=== PATIENT | male | born 1980 | race Caucasian/White ===

== ENCOUNTER 2024-12-16 00:36 | Day surgery (SDC) | payer OTHER, SELFPAY ==
[2024-11-29 13:58] VITALS: BMI 28.9
--- OUTSIDE RECORDS SUMMARY | 2024-12-16 00:37 | XMS_ITS ---
Author Organization [facility] Address [address] [place] [address] Care Team Providers Care Handyperson Name Role Phone Jefe Garcia Primary Care Provider [phone] Allergies Allergen (clinical drug ingredient) Drug/Non Drug Allergy documented on EMR Reaction Allergy Type Onset Date Status Non-steroidal anti-inflammatory agent (FN) NSAIDs Unknown Drug Allergy Active Results Component Value Reference Range Notes 12 Panel Urine Drug Screen ( Not yet reviewed by provider) Interpretation: Performing Lab: Notes/Report: THC POS MAO neg MOP (OPI) POS AMP neg MET neg BAR neg BZO neg MDMA neg MTD neg OXY POS PCP neg BUP POS REASON FOR VISIT mat new, fentanyl, possibly continue suboxone/discuss options Medications Medication SIG (Take, Route, Fr equency, Duration) Notes Start Date End Date Status Omeprazole 10 MG 1 capsule 30 minutes before morning meal Orally Once a day for 30 day(s) Active Suboxone 8-2 MG 1 film under the ton belgica and allow to dissolve Sublingual Once a day 12/15/2024 Active Social History Tobacco Use: Social History Observation Description Date Details (start date - stop date) Heavy tobacco s moker NA - NA Sex Assigned At : Social History Observation Description Sex Assigned At Male Tobacco Control (Standard) Question Answer Notes Tobacco use: Heavy tobacco smoker Additional Findings: Tobacco user Moderate cigar ette smoker (10-19 cigs/day) Problems Problem Type SNOMED Code ICD Code Onset Dates Problem Status W/U Status Risk Notes Problem Mental disorder caused by drug (188524003) Opioid use disorder (F11.99) Active confirmed Problem Obesity (650895510) Obesity (BMI 30-39.9) (E66.9) Active confirmed Problem Tobacco use (601467750) Tobacco use disorder (F17.200) Active confirmed Vital Signs Weight 224.2 lbs 12/15/2024 Height 72 in 12/15/2024 BMI 30.4 kg/m2 12/15/2024 Blood pressure systolic 138 mm Hg 12/15/19 25 Blood pressure diastolic 88 mm Hg 025 Heart Rate 66 /min 12/15/2024 Oximetry 96 % 12/15/2024 Temperature 97.7 degrees Fahrenheit 12/15/19 25 Respiratory Rate 18 /min 12/15/2024 Encounters Encounter Location Date Provider Diagnosis [facility] [place] [address] [place] [address] 12/15/2024 Jefe Garcia Opioid use disorder F11.99 ; Obesity (BMI 30-39.9) E66.9 and Tobacco use disorder F17.200 Assessments Encounter Date Diagnosis (ICD Code) Assessment Notes Treatment Notes Treatment Clinical Notes Section Notes 12/15/2024 Opioid use disorder (ICD-10 - F11.99) 12/15/2024 Obesity (BMI 30-39.9) (ICD-10 - E66.9) 12/15/2024 Tobacco use disorder (ICD-10 - F17.200) 12/15/2024 Other Discussed medication side effects, adverse effects, risks, benefits, as well as interactions. Encouraged non-use of opioids. Has naloxone. Recommended participation in recovery groups and/or counseling services. May contact office with questions or concerns. Plan Of Treatment Medication Medication Name Sig Start Date Stop Date Notes Suboxone 8-2 MG 1 film under the ton belgica and allow to dissolve Sublingual Once a day 12/15/2024 Treatment Notes Assessment Notes Other Discussed medication side effects, adverse effects, risks, benefits, as well as interactions. Encouraged non-use of opioids. Has naloxone. Recommended participation in recovery groups and/or counseling services. May contact office with questions or concerns. Pending Test Test Name Order Date 12 Panel Urine Drug Screen 12/15/2024 Next Appt Details Follow Up: 2 Weeks, Reason: MAR f/u Progress Notes * Nabil BALTAZAROB:1980 (44 yo M)Acc No.[id number]:12/15/2024 Patient: Chato CROWE Provider: Nancy Garcia, MSN, PEST CONTROL SERVICE REPRESENTATIVE, DIRECTOR APPAREL-C :1980 A ge:44 Y S ex:Male Date:12/15/2024 Phone: Address:[address] [place] [id number] Check In:09:50 AM PREFORM PLATE MAKER Subjective: * Chief Complaints: * M at new, fentanyl, possibly continue suboxone/discuss options * HPI: I nterim History: Emergency room visit N o. Was hospitalized N o. D epression Screening: PHQ-9 L ittle interest or pleasure in doing things?Several days F eeling down, depressed, or hopeless S everal days T rouble falling or staying asleep, or sleeping too much M ore than half the days F eeling tired or having little energy M ore than half the days P oor appetite or overeating N ot at all F eeling bad about yourself or that you are a failure, or have let yourself or your family down N ot at all T rouble concentrating on things, such as reading the newspaper or watching television M ore than half the days M oving or speaking so slowly that other people could have noticed; or the opposite, being so fidgety or restless that you have been moving around a lot more than usual N ot at all T houghts that you would be better off or of hurting yourself in some way N ot at all T otal Score 8 I nterpretation M ild Depression S creening: [place] Suicide Severity Rating Scale (LF) 1 . Wish to be : Have you wished you were or wished you could go to sleep and not wake up? N o 2 . Suicidal Thoughts: Have you actually had any thoughts of killing yourself? N o 6 . Suicide Behavior Question: Have you ever done anything,started to do anything, or prepared to end your life? N o I nterpretation: L ow Risk P reventative Health and Wellness follow-up: Action Plans for Clinical Quality Measures: A dult BMI and follow-up: O ther (see notes). BMI nutrition discussed H ypertension, Blood Pressure Control: O ther (see notes). Hypertension addressed by PCP T obacco Screening and Cessation: O ther (see notes). Tobacco Cessation reviewed . C SSRS Interpretation and Follow Up Plan: CSSRS Interpretation and Follow Up Plan C SSRS Screen documented using SF Y es R isk Disposition from SF L ow - No Follow Up Plan Required F ollow Up Plan M oderate/High: Warm hand off to Behavioral Health Heather ECHEVERRIA Initial Assessment: Chato presents for [facility] services. Drug of choice: fentanyl, reports using 1/2 gram daily in the past. Last use 2.5 years ago. Since this time reports he has been getting buprenorphine from friends and taking buprenorphine/naloxone 8-2mg 1 film daily and would like to continue. Reports opiate use started as a child following broken bones and later escalated to illicit fentanyl use. Reports past IV use and treated for hepatitis C in the past with [facility]. Substance use history S ubstance Use History, drugs of choice: O THER (specify): fentanyl Addiction Treatment History P rior Medications for LUNDBERG treatment S uboxone T herapy/counseling and Recovery support (peers/groups) N o history of therapy/counseling or engagement with recovery support peer/groups. Therapy/counseling and recovery support discussed and encouraged. Referrals placed. History of Infectious Diseases H istory of viral hepatitis Y es H istory of HIV N o H istory of TB N o H istory of other infectious diseases N o History of IV drug use and related infections H istory of injection drug use? Y es H istory of Infections related to IV drug use?None. Acute Trauma A cute Trauma N o Psychiatric History H istory of psychiatric diagnoses? N o Primary Care H as a primary care provider? Y es. See notes for provider. Dr. David mireles primary care visit: Patrick love last year D isclosure authorization obtained? Y es. staff respiratory therapist will obtain disclosure authorization. Assessment and history specific to females F emale/Female at ? N o Hepatitis A and B vaccination status V accination status Hep A D enies vaccination to Hep A. Vaccination encouraged and resources offered. V accination status, Hep B R eports vaccination for Hep B Housing Stability and Employment I s housing stable/safe? Y es C urrently employed? E mployed part time. Support System: H as a support system: Y es (specify): Narcan Access H as Narcan and has been trained on its use??Yes. Prescription Drug Monitoring Program P rescription Drug Monitoring Program reviewed? Y es. No concerns identified. * ROS: B asic ROS: Denies C hills. D enies S weats. D enies C onstipation. I nsomnia D enies. D enies A nxiety. D enies D epressed Mood.?Denies S uicidal Thoughts. * Medical History: * Surgical History: f acial surgery (right jaw) * Hospitalization/Major Diagno stic Procedure: D enies Past Hospitalization * Family History: F ather: . M other: alive. 1 brother(s) , 1 sister(s) . 2 daughter(s) . .? * Social History: P rimary Social History: L iving Arrangement L iving Arrangement: I ndependent Living I s this a supportive environment? 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 T obacco Use: T obacco Control (Standard) T obacco use: H eavy tobacco smoker A dditional Findings: Tobacco user M oderate cigarette smoker (10-19 cigs/day) M iscellaneous: M ethod of learning P referred method of learning: D iscussion,Demonstration * Medications: T akingOmeprazole 10 MG Capsule Delayed Release 1 capsule 30 minutes before morning meal Orally Once a day Suboxone 8-2 MG Film 1 film under the tongue and allow to dissolve Sublingual Once a day Medication List reviewed and reconciled with the patientTaking Omeprazole 10 MG Capsule Delayed Release 1 capsule 30 minutes before morning meal Orally Once a day Taking Suboxone 8-2 MG Film 1 film under the tongue and allow to dissolve Sublingual Once a day Medication List reviewed and reconciled with the patient * Allergies: N Duglas[Allergies Verified] Objective: * Vitals: I nitials: LL, Wt:224.2, Ht: 72, BMI:30.4, BP:138/88, HR:66, Oxygen sat %:96, Temp:97.7, RR:18, Pain scale:0. * Examination: A [facility] Physical Assessment: Intoxication and Withdrawal signs . G eneral Examination: GENERAL APPEARANCE: p leasant, in no acute distress. EYES: P ERRLA. SKIN: w arm and dry. HEART: r egular rate and rhythm. LUNGS: r espirations regular and easy. PSYCH: s peech clear, alert, oriented x4, judgement and insight good, thought process logical, goal directed. Assessment: * Assessment: 1. O besity (BMI 30-39.9) - E66.9 2 . O pioid use disorder - F11.99 (Primary) 3 . T obacco use disorder - F17.200 Plan: * Treatment: Value Reference Range T HC POS * C OC neg * M OP (OPI) POS * A MP neg * M ET neg * B AR neg * B ZO neg * M DMA neg * M TD neg * O XY POS * P CP neg * B UP POS 2.?Others? Notes: Discussed medication side effects, adverse effects, risks, benefits, as well as interactions. Encouraged non-use of opioids. Has naloxone. Recommended participation in recovery groups and/or counseling services. May contact office with questions or concerns.?? * Procedure Codes: 9 9000 SPECIMEN [id number] BODY MASS INDEX [id number] SELF-MGMT EDUC & TRAIN, 1 [id number] MEDICAL NUTRITION, INDIV, [id number] BEHAV CHNG SMOKING 3-10 MIN * Preventive Medicine: Counseling: C are goal follow-up plan: BMI management provided Y es Above Normal BMI Follow-up L ifestyle education regarding diet S MOKING: Patient counselled on the dangers of tobacco use and urged to quit. . * Follow Up: 2 Weeks (Reason: JAN f/u) * * ORM PLATE MAKER Sign off status: Completed true * Provider: Nancy Garcia, MSN, PEST CONTROL SERVICE REPRESENTATIVE, DIRECTOR APPAREL-C Date: 0 12/15/2024 Generated for Betty pretty/Sanjiv/eTransmitting on: 12/16/2024 12:37 AM PREFORM PLATE MAKER History and Physical Notes * HPI (History of Present Illness) Category Sub-Category Detail Notes Category Not es Interim History Was hospitalized No Emergency room visit No Depression Screening PHQ-9 Little inte rest or pleasure in doing things: Several days Feeling down, depressed, or hopeless: Se veral days Trouble falling or staying a sleep, or sleeping too much: More than half the days Feeling tired or having little energy: M ore than half the days Poor appetite or overeating: Not at all Feeling bad about yourself o r that you are a failure, or have let yourself or your family down: Not at all Trouble concentrating on thi ngs, such as reading the newspaper or watching television: More than half the days Moving or speaking so slowly that other people could have noticed; or the opposite, being so fidgety or restless that you have been moving around a lot more than usual: Not at all Thoughts that you would be b laly off or of hurting yourself in some way: Not at all Total Score: 8 Interpretation: Mild Depression Screening [place] Suicide Sev erity Rating Scale (LF) 1. Wish to be : Have you wished you were or wished you could go to sleep and not wake up?: No 2. Suicidal Thoughts: Have you actually had any thoughts of killing yourself?: No 6. Suicide Behavior Question: Have you ever done anything,started to do anything, or prepared to end your life?: No Interpretation:: Low Risk MAR Initial Assessment History of Infect ious Diseases History of viral hepatitis: Yes History of HIV: No History of TB: No History of other infectious diseases: No Acute Trauma Acute Trauma: No History of IV drug use and related infec tions History of injection drug use?: Yes History of Infections related to IV drug use: None. Psychiatric History History of psychiatric diagn oses?: No Substance use history Substance Use Hist ory, drugs of choice:: OTHER (specify): fentanyl Addiction Treatment History Prior Medications fo r LUNDBERG treatment: Suboxone Therapy/counseling and Recov fredo support (peers/groups): No history of therapy/counseling or engagement with recovery support peer/groups. Therapy/counseling and recovery support discussed and encouraged. Referrals placed. Primary Care Has a primary care provider?: Moi hale. See notes for provider. Dr. David Mejia Last primary care visit:: Within last year Disclosure authorization obtained?: Yes. staff respiratory therapist will obtain disclosure authorization. Assessment and history speci fic to females Female/Female at ?: No Hepatitis A and B vaccination status Vac cination status Hep A: Denies vaccination to Hep A. Vaccination encouraged and resources offered. Vaccination status, Hep B: Reports vacci nation for Hep B Housing Stability and Employment Is housing stab le/safe?: Yes Currently employed?: Employed part time. Support System: Has a support system:: Yes (spec humberto): Narcan Access Has Narcan and has b een trained on its use?: Yes. Prescription Drug Monitoring Program Pre scription Drug Monitoring Program reviewed?: Yes. No concerns identified. Preventative Health and Wellness follow-up Action Plans for Clinical Quality Measures: Adult BMI and follow-up:: Other (see notes). BMI nutrition discussed . Hypertension, Blood Pressure Control:: Other (see notes). Hypertension addressed by PCP Tobacco Screening and Cessation:: Other (see notes). Tobacco Cessation reviewed CSSRS Interpretation and Follow Up Plan CSSRS Interpretation and Follow Up Plan CSSRS Screen documented using SF: Yes Risk Disposition from SF: Low - No Follo w Up Plan Required Follow Up Plan: Moderate/High: Warm hand off to Behavioral Health Examination Category Sub-Category Detail Notes Category Not es General Examination GENERAL APPEARANCE: pleasant, in n o acute distress EYES: PERRLA HEART: regular rate and rhy thm LUNGS: respirations regular and easy SKIN: warm and dry PSYCH: speech clear, alert, oriented x4, judgement and insight good, thought process logical, goal directed ASAM Physical Assessment Intoxication an d Withdrawal signs Intoxication signs: No signs of intoxication are present during examination. . Withdrawal Signs: No withdrawal signs ar e present during examination.
--- OUTSIDE RECORDS SUMMARY | 2024-12-16 00:37 | XMS_ITS | Clinical Summary ---
Author Organization [facility]Care Care Team Providers Care Case Checker Name Role Phone Unknown, Notinfile Primary Care Provider Unavail able Allergies Active Allergy Reactions Criticality Noted Date Comments Nsaids (Non-Steroidal Anti-I nflammatory Drug) Hives Medium 08/28/2022 Medications omeprazole (PriLOSEC) 40 mg capsule Take 40 mg by mouth daily Active lisinopriL (PRINIVIL,ZESTR IL) 10 mg tablet Take 10 mg by mouth daily Active ondansetron (Zofran) 4 mg tabletIndicatio ns:Chronic hepatitis C without hepatic coma (CMS/HCC) (HCC) Take 1 tablet (4 mg total) by mouth every 12 (twelve) hours as needed for nausea or vomiting 30 tablet 1 11/21/2022 Active buprenorphine-n aloxone (SUBOXONE) 2-0.5 mg per SL tablet Place 0.5 tablets under the tongue daily Active Active Problems Problem Noted Date Diagnosed Date Chronic hepatitis C without hepatic coma (CMS/HC C) 11/21/2022 Assessment & Plan (11/21/2022 9:04 AM HAND 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 Hepatitis C: chronic, treatment naive. Risk factors include prior IV drug use, incarceration, and tattoos. He has elevated liver tests, ALT 169, AST 72. Genotype 3. Patient is agreeable to starting treatment. Will get updated liver tests today as well as a FibroScan to evaluate if he has any hepatic fibrosis. Will get US abd to evaluate bloating/abdominal discomfort and confirm there are no concerning liver lesions. AFP also ordered. He may need MRI abd to assess further but will start with US. I anticipate his symptoms will get better once hep C has been treated. He should remain sober from alcohol and all illicit/recreatoinal drugs. I discussed the natural history of chronic hepatitis C, including the potential for progression to cirrhosis, liver failure, development of liver cancer, need for a liver transplant, and . I discussed currently available antiviral agents, including their efficacy and adverse effects. I discussed the technique of liver biopsy and the use of liver histology to assist in the decision to use antiviral agents. I discussed risk factors for transmission, based on blood to blood contact. I recommended not sharing a toothbrush or razor blade. The risk of sexual transmission is less than 1% in a monogamous relationship. However, if there is concern, a condom should prevent transmission of the hepatitis C virus. I discussed the effect of heavy alcohol use on hepatitis C and how the disease can be accelerated. We discussed currently available antiviral therapy, including its efficacy, side effects, and cost. If there are concerns of potential treatment side effects, the patient is asked to contact my office. Pre-treatment, end of treatment and three-month follow up labs will be obtained. Currently, I see no obvious contraindications to antiviral therapy. 2. Frequent urination: will obtain updated UA with urine culture. Last sample showed trace bacteria. PSA was normal. 3. Hypertension: needs to follow-up with PCP. Currently taking lisinopril. 4. Nausea: Prescribed zofran PRN. 5. Reflux: may need EGD. Will await results of labs and FibroScan first. He will return to clinic in 6 months. Social History Tobacco Use Types Packs/Day Years Used Date Smoking Tobacco: Every Day Cigarettes Tobacco Cessation:Ready to Q uit: No; Counseling Given: Not Answered Personal Safety Answer Date Recorded Getting School Help Needed Not on file 11/08 Sex and Gender Information Value Date Recorded Sex Assigned at Not on file Legal Sex Male 2:02 AM HAND BUNCH MAKER Gender Identity Not on file Sexual Orientation Not on file Obstetrics History Last Filed Vital Signs Vital Sign Reading Time Taken Comments Blood Pressure 146/101 11/21/2022 8:21 AM HAND BUNCH MAKER Pulse 82 11/21/2022 8:21 AM HAND BUNCH MAKER Temperature 36.7 C (98.1 F) 11/21/2022 8:21 AM HAND BUNCH MAKER Respiratory Rate - - Oxygen Saturation - - Inhaled Oxygen Concentration - - Weight 103.9 kg (229 lb) 11/21/2022 8:21 AM HAND BUNCH MAKER Height 188 cm (6' 2 ) 11/21/2022 8:21 AM HAND BUNCH MAKER Body Mass Index 29.4 11/21/2022 8:21 AM HAND BUNCH MAKER Plan of Treatment Health Maintenance Due Date Last Done Comments Depression Screening 1980 Pneumococcal vaccine <65 (1 of 2 - PCV) 1986 DTaP/Tdap/Td Vaccine (1 - Tdap) 1991 Varicella Vaccines (1 of 2 - 13+ 2-dose series) 1993 Regular Well Visit/Exam 18-64 1998 Influenza Vaccine (#1) 2024 Hepatitis C Screening Completed 06/04/2023 , 06/04/2023, 03/10/2023, Additional history exists HPV Vaccines Aged Out No longer eligi ble based on patient's age to complete this topic Procedures Procedure Name Priority Date/Time Associated Diagnosis Comments HEPATITIS C RNA, QUANTITATIVE, PCR Routine 06/04/2023 1:58 PM CDT Chronic hepatitis C without hepatic coma (CMS/HCC) (HCC) from Last 3 Months or Most Recently Relevant to Health Maintenance Results * Hepatitis C (HCV) RNA PCR, quantitative (06/04/2023 1:58 PM CDT) HCV RNA result Not Detected CE SHILPA WILLIAM (JACKIE) Comment: The quantifiable range of this assay is 15 IU/mL to 100,000,000 IU/mL (1.18 log IU/mL to 8.00 log IU/mL). Testing was performed by the L[facility] 6800 HCV Test ([facility] Testing performed at [facility] Current Interpretive Data was last revised on 2021 Testing performed by: [facility], [address], [place]., [address] Blood 06/04/2023 1:58 PM CDT 06/04/2023 6:35 PM CDT Ching Buck NP LAB MICROBIOLOGY - [facility] AL ORDERABLES Final Result [facility] ([place]) [address] [place] [address] from Last 3 Months or Most Recently Relevant to Health Maintenance Insurance Care Teams Case Checker Relationship Specialty Start Date End Date Unknown, Notinfile PCP - General 06/04/23
--- OUTSIDE RECORDS SUMMARY | 2024-12-16 00:38 | XMS_ITS | Clinical Summary ---
Author Organization [facility] Address [address] [place] [address] Care Team Providers Care Professional Organizer Name Role Phone Janelle Gunter MD Primary Care Pr ovider Unavailable Source Comments [facility],non-owned Affiliates and Associated Physician Practices is amultiple site organization consisting of ambulatory clinics and hospital sitesin [place], [place], [place] and [place]. This disclosure is being madepursuant to the Care Everywhere program and may not contain all information available regarding this patient. Last updated 18.[facility] Medications Be aware that medications may not be up to date on this document. Always verify current medications with the patient. No known medications Active Problems No known active problems Social History Tobacco Use Types Packs/Day Years Used Date Smoking Tobacco: Never Assessed Sex and Gender Information Value Date Recorded Sex Assigned at Not on file Gender Identity Not on file Sexual Orientation Not on file Plan of Treatment Health Maintenance Due Date Last Done Comments LIPID TESTING 1980 HIV SCREENING 1995 HEPATITIS C SCREENING 03/21/1998 DTAP/TDAP/TD VACCINES (1 - Tdap) 1999 HEPATITIS B VACCINE (1 of 3 - 19+ 3-dose series) 1999 COVID-19 VACCINE (2023-2 5 season) 2024 INFLUENZA VACCINE (#1) 2024 DEPRESSION SCREENING 11/03/2024 ZOSTER VACCINE (1 of 2) 2030 HIB VACCINE Aged Out No longer eligi ble based on patient's age to complete this topic HPV VACCINE Aged Out No longer eligi ble based on patient's age to complete this topic MENINGOCOCCAL (Group B) VACCINE Aged Out No longer eligible based on patient's age to complete this topic MENINGOCOCCAL VACCINE Aged Out No josafat darling eligible based on patient's age to complete this topic PNEUMOCOCCAL VACCINE Aged Out No long er eligible based on patient's age to complete this topic Care Teams Professional Organizer Relationship Specialty Start Date End Date Janelle Gunter MD PCP - General 09/13/22
--- OUTSIDE RECORDS SUMMARY | 2024-12-16 00:38 | XMS_ITS | Patient Health Record ---
Author Organization [facility] Address [address] [place] [address] Care Team Providers Care System Architect Name Role Phone Jefe Garcia Primary Care Provider [phone] Allergies Allergen (clinical drug ingredient) Drug/Non Drug [...] neg OXY POS PCP neg BUP POS Reason For Referral No Information Medications Medication SIG (Take, Route, Fr equency, [...] Problem Status W/U Status Risk Notes Problem Obesity (447879005) Obesity (BMI 30-39.9) (E66.9) Active confirmed Problem Tobacco use (308436389) Tobacco use disorder (F17.200) Active confirmed Problem Mental disorder caused by drug (946743289) Opioid use disorder (F11.99) Active confirmed Vital Signs Heart Rate 66 /min 12/15/2024 Temperature 97.7 degrees Fahrenheit 12/15/2024 Respiratory Rate 18 /min 12/15/2024 Blood pressure diastolic 88 mm Hg 12/15/2024 Oximetry 96 % 12/15/2024 Height 72 in 12/15/2024 Blood pressure systolic 138 mm Hg 12/15/2024 Weight 224.2 lbs 12/15/2024 BMI 30.4 kg/m2 12/15/2024 Encounters Encounter Location Date Provider Diagnosis [facility]ly [facility] [address] [place] [address] 12/15/2024 Jefe Garcia Opioid use disorder F11.99 ; Obesity (BMI 30-39.9) E66.9 and Tobacco use disorder F17.200 Assessments Encounter Date Diagnosis (ICD Code) Assessment Notes Treatment Notes Treatment Clinical Notes Section Notes 12/15/2024 Obesity (BMI 30-39.9) (ICD-10 - E66.9) 12/15/2024 Opioid use disorder (ICD-10 - F11.99) 12/15/2024 Tobacco use disorder (ICD-10 - F17.200) 12/15/2024 Other Discussed medication side effects, adverse effects, risks, benefits, as well as interactions. Encouraged non-use of opioids. Has naloxone. Recommended participation in recovery groups and/or counseling services. May contact office with questions or concerns. Plan Of Treatment Pending Test Test Name Order Date 12 Panel Urine Drug Screen 12/15/2024 Insurance Providers Payer Name Payer Address Payer Phone Subscriber Number Group Number Insured Name Patient Relationship to Insured Coverage Start Date Coverage End Date [facility] Attn Claims Department [address] [place] [address] [id number] Chato Copeland Self - patient is the insured Medical (General) History Medical History History ICD Code GERD HTN Opioid use disorder Surgical History Surgery Date(Month/Year) facial surgery (right jaw) Hospitalization History Reason Date(Month/Year)
--- OUTSIDE RECORDS SUMMARY | 2024-12-16 00:38 | XMS_ITS | Encounter Summary ---
Author Organization [facility] Address [address] [place] [address] Care Team Providers Care Feed Blender Name Role Phone Janelle Gunter MD Primary Care Pr ovider Alexandre Nelson MD Primary Care Provider [phone] Encounter Details Date Type Department Care Team (Late st Contact Info) Description 09/23/2022 [place] [employer] Message Enc [facility] Multispecialty Care - [address] [place] [address] Surgical Care Affiliatest, [facility] Provider UA results Social History Tobacco Use Types Packs/Day Years Used Date Smoking Tobacco: Every Day Cigarettes 1 20 Smokeless Tobacco: Former Alcohol Use Standard Drinks/Week Comments Yes 0 (1 standard drink = 0.6 oz pur e alcohol) on occassion PHQ-2 Answer Date Recorded PHQ-2 Score - If the patient scores above 3, please move on to questions 3-9 2 08/28/2022 Sex and Gender Information Value Date Recorded Sex Assigned at Not on file Legal Sex Male 8:43 AM CDT Gender Identity Not on file Sexual Orientation Not on file COVID-19 Exposure Response Date Recorded In the last 10 days, have yo u been in contact with someone who was confirmed or suspected to have Coronavirus/COVID-19? No / Unsure 09/11/2022 10:05 AM PAINTER PLATE documented as of this encounter Plan of Treatment Not on file documented as of this encounter Visit Diagnoses Not on filedocumented in this encounter Care Teams Feed Blender Relationship Specialty Start Date End Date Janelle Gunter MD PCP - General FAMILY PRACTICE 08/28/22 04/06/23 Alexandre Benson MD [address] [address] PCP - General INTERNAL MEDICINE 04/07/23 documented as of this encounter
--- OUTSIDE RECORDS SUMMARY | 2024-12-16 00:38 | XMS_ITS | Referral Summary ---
Author Organization [facility] Care Team Providers Care Agricultural Production Engineer Name Role Phone Unknown, Notinfile Primary Care [...] 11/21/2022 Assessment & Plan (11/21/2022 9:04 AM CIVIL ENGINEERING DIRECTOR): 1. Hepatitis C: chronic, treatment naive. Risk [...] on file Legal Sex Male 2:02 AM CIVIL ENGINEERING DIRECTOR Gender Identity Not on file Sexual Orientation Not on file Last Filed Vital Signs Vital Sign Reading Time Taken Comments Blood Pressure 146/101 11/21/2022 8:21 AM CIVIL ENGINEERING DIRECTOR Pulse 82 11/21/2022 8:21 AM CIVIL ENGINEERING DIRECTOR Temperature 36.7 C (98.1 F) 11/21/2022 8:21 AM CIVIL ENGINEERING DIRECTOR Respiratory Rate - - Oxygen Saturation - - Inhaled Oxygen Concentration - - Weight 103.9 kg (229 lb) 11/21/2022 8:21 AM CIVIL ENGINEERING DIRECTOR Height 188 cm (6' 2 ) 11/21/2022 8:21 AM CIVIL ENGINEERING DIRECTOR Body Mass Index 29.4 11/21/2022 8:21 AM CIVIL ENGINEERING DIRECTOR Plan of Treatment Not on file Procedures Procedure Name Priority Date/Time Associated Diagnosis Comments HEPATITIS C RNA, QUANTITATIVE, PCR Routine 06/04/2023 1:58 PM CDT Chronic hepatitis C without hepatic coma (CMS/HCC) (HCC) from Last 3 Months or Most Recently Relevant to Health Maintenance Results * Hepatitis C (HCV) RNA PCR, quantitative (06/04/2023 1:58 PM CDT) Pathologist [facility] HCV RNA result Not Detected LEO WILLIAM (JACKIE) Comment: The quantifiable range of this assay is 15 IU/mL to 100,000,000 IU/mL (1.18 log IU/mL to 8.00 log IU/mL). Testing was performed by the LYNDSEY 6800 HCV Test ([employer] Testing performed at [facility] Current Interpretive Data was last revised on 2021 Testing performed by: [facility], [address] [facility], [place]., [address] Blood 06/04/2023 1:58 PM CDT 06/04/2023 6:35 PM CDT Ching Buck NP LAB MICROBIOLOGY - GENER AL ORDERABLES Final Result ATULGUSTAVO STEWART (JACKIE) [address] [facility] [place] [address] from Last 3 Months or Most Recently Relevant to Health Maintenance Insurance [facility] Care Teams Agricultural Production Engineer Relationship Specialty Start Date End Date Unknown, Notinfile PCP - General 06/04/23
--- OUTSIDE RECORDS SUMMARY | 2024-12-16 00:38 | XMS_ITS | Clinical Summary ---
Author Organization [facility] Address [address] [place] [address] Care Team Providers Care Lens Fabricating Machine Tender Name Role Phone Alexandre Benson MD Primary Care Provider [phone] Allergies Active Allergy Reactions Criticality Noted Date Comments Nsaids Hives 08/28/2022 Medications Acetaminophen (TYLENOL OR) Active lisinopril (PRINIVIL) 10 MG tabletIndications :Essential hypertension Take 1 tablet (10 mg total) by mouth daily. 30 tablet 1 2 Active omeprazole (PRILOSEC) 20 MG capsuleIndication s:Chronic GERD Take 1 capsule (20 mg total) by mouth daily. 30 capsule 1 2 Active Active Problems No known active problems Immunizations Name Administration Dates Next Due Hepatitis B (Recombivax Hb 10 Mcg) 09/11/2022 Social History Tobacco Use Types Packs/Day Years Used Date Smoking Tobacco: Every Day Cigarettes 1 20 Smokeless Tobacco: Former Tobacco Cessation:Ready to Q uit: No; Counseling Given: Yes Alcohol Use Standard Drinks/Week Comments Yes 0 [...] Sign Reading Time Taken Comments Blood Pressure 130/86 09/11/2022 10:09 AM RESEARCH NURSE Pulse 81 09/11/2022 10:09 AM RESEARCH NURSE Temperature 37.3 C (99.2 F) 09/11/2022 10:09 AM RESEARCH NURSE Respiratory Rate 18 09/11/2022 10:09 AM RESEARCH NURSE Oxygen Saturation 94% 09/11/2022 10:09 AM RESEARCH NURSE Inhaled Oxygen Concentration - - Weight 101.6 kg (224 lb) 09/11/2022 10:09 AM RESEARCH NURSE Height 180.3 cm (5' 11 ) 09/11/2022 10:09 AM RESEARCH NURSE Body Mass Index 31.24 09/11/2022 10:09 AM RESEARCH NURSE Plan of Treatment Health Maintenance Due Date Last Done Comments Annual Physical 1983 Pneumococcal Vaccine: Pediatrics (0 to 5 Years) and At-Risk Patients (6 to 64 Years) (1 of 2 - PCV) 1986 PHQ-2 (Physician [place]) 1992 DTaP, Tdap and Td Vaccines (1 - Tdap) 1999 Hepatitis B Vaccines (1 of 3 - 19+ 3-dose series) 1999 09/11/2022 COVID-19 Vaccine (1 - 2023- season) 2024 Influenza Adult (#1) 2024 PHQ-2 (Physician [place]) 11/03/2024 Hepatitis C Completed 09/11/2022, 02/2022, 09/06/2022, Additional history exists HPV Vaccines Aged Out No longer eligi ble based on patient's age to complete this topic Meningococcal B Vaccine Aged Out No l onger eligible based on patient's age to complete this topic Meningococcal Vaccine Aged Out No josafat darling eligible based on patient's age to complete this topic RSV Immunizations Under 20 Months Aged Out No longer eligible based on patient's age to complete this topic Procedures Procedure Name Priority Date/Time Associated Diagnosis Comments HEPATITIS C RNA W/ REFLX GENOTYPE Routine 08/30/2022 2:53 PM CDT Hepatitis C antibody positive in blood from Last 3 Months or Most Recently Relevant to Health Maintenance Results * (ABNORMAL) HEPATITIS C RNA W/ REFLX GENOTYPE (08/30/2022 2:53 PM CDT) HEPATITIS C RNA PCR QNT 15,200,00 0(H) IU/mL [facility], HEPATITIS C RNA PCR QNT 7.18(H) LogIU/mL [facility], Comment: REFERENCE RANGE: NOT DETECTED IU/mL NOT DETECTED Log IU/mL This test was performed using Real-Time Polymerase Chain Reaction Reportable range is 15 to 100,000,000 IU/mL (1.18-8.00 Log IU/mL). The analytical performance characteristics of this assay have been determined by [employer]. The modifications have not been cleared or approved by the FDA. This assay has been validated pursuant to the CLIA regulations and is used for clinical purposes. For additional information, please refer to http://education.Noblivity/faq/OVQ78x2 (This link is being provided for informational/ educational purposes only.) 08/30/2022 2:53 PM CDT 08/31/2022 6:51 AM CDT Janelle Gunter MD LABORATORY Final Result [facility], [address] [place] [address] from Last 3 Months or Most Recently Relevant to Health Maintenance Insurance MEDICAID Care Teams Lens Fabricating Machine Tender Relationship Specialty Start Date End Date Alexandre Benson MD [address] [place] [address] PCP - General INTERNAL MEDICINE 04/07/23
--- OUTSIDE RECORDS SUMMARY | 2024-12-16 00:38 | XMS_ITS | Continuity of Care Document ---
Author Organization [facility] Address [address] [facility] [place] [address] Phone Care Team Providers Care Javascript Ui Developer Name Role Phone David Mejia MD Unavailable Unavailable Allergies, Adverse Reactions, Alerts Substance Reaction Status Criticality NSAIDS (Non-Steroidal Anti-Inflammatory Drug) Hives / Skin RashItchingSwelling Active No Information Medications Medication Instructions Dosage Effective Dates (start - stop) Status Comments Toprol XL 25 mg tablet,extended release take 1 tablet by oral route every day 25 MG - Active omeprazole 20 mg capsule,delayed release take 1 capsule by oral route every day before a meal 20 MG - Active Procedures Procedure Date OFFICE/OUTPATIENT VISIT, EST PREV VISIT, NEW, AGE 40-64 Advance Directives Directive Yes / No Effective Date File Name No Information Encounters Encounter Description Practice Location Reason(s) For Visit Diagnoses Date Provider Providers Copied on Encounter OFFICE/OUTPA TIENT VISIT, EST [facility], [address] [place], [place], [id number], tel:[phone] [facility] HLP (chief complaint) proteinuri a1 (chief complaint) chest pain1 (chief complaint) GERD1 (chief complaint) Mixed hyperlipidemiaProte inuriaEssential (primary) hypertensionGERD w/o esophagitis 5 Roberto Hernandez. [address] [place], [place], [id number] , [place]. tel:[phone] PREV VISIT, NEW, AGE 40-64 [facility], [address] [place], [place], [id number], [place] tel:[phone] [facility] physical (chief complaint) Encounter for general adult medical examination without abnormal findings Roberto Hernandez. [address], [place], [place], [id number] , [place]. tel:[phone] Family History Family Member Type Diagnosis Age At Onset Mother Problem Hypertension Father Problem of 51 liver failure fro m alcohol Payers Payer name Insurance type Covered republican ID [place] ibarra(s) [facility] CI [id number] Social History Type Description Quantity Date Captured Comments Alcohol Use Details beer 2 drinks socially Caffeine Use Details Unknown Tobacco Use Status Moderate cigarette smoker (10-19 cigs/day) Smoking Status Heavy tobacco smoker Sex Male Vital Signs Date / Time: Height Weight BMI Pulse Rate Blood Pressure Temperature Respiratory Rate Body Surface Area Head Circumference BMI percentile Pulse Ox Inhaled Ox 2:58 PM 74.00 in 224.40 lbs 28.8 1 kg/m eter (2) 80 /min 142/88 mm[Hg] 98.1 F 16 /min Chief Complaint And Reason For Visit From encounter dated '12/09/2024 14:57'. HLP (chief complaint). Description: Pt has HLP> pt is not on any diet. Pt eats a lot of fast food proteinuria1 (chief complaint). Description: Pt has very mild proteinuria. Pt denies any urinary symptoms chest pain1 (chief complaint). Description: Pt has chronic atypical chest pain with HTN Pt started toprol recently and he tolerates it ok Pt denies any chest pain. his bp is much better. Pt denies any sob GERD1 (chief complaint). Description: Pt has chronic GERd. Pt doing well with omeprazole Pt has EGDand colonoscopy scheduled in two weeks Pt wants omeprazole refilled. Plan Of Treatment Date Type Action Status Referral Referred To: Santiago Orosco [address] [place] [address], [phone] Ordered: Referrals: Santiago Orosco. Evaluate and treat ordered Referral Ordered: COLONOSCOPY AND BIOPSY ordered Appointment Chato Copeland BOOKED History Of Present Illness Encounter Date Complaint History Of Prese nt Illness GERD1 Pt has chronic G ERd. Pt doing well with omeprazole Pt has EGD and colonoscopy scheduled in two weeks Pt wants omeprazole refilled. chest pain1 Pt has chronic a typical chest pain with HTN Pt started toprol recently and he tolerates it ok Pt denies any chest pain. his bp is much better. Pt denies any sob proteinuria1 Pt has very mild proteinuria. Pt denies any urinary symptoms HLP Pt has HLP> pt i s not on any diet. Pt eats a lot of fast food physical Pt needs annual physical pt has HTN Pt also has intermittent dull chest pain x 6 months pt denies any exertional chest pain Pt sometimes feels that his heart is wheezing. pt denies any sob. Pt is trying to cut down alcohol. Pt c/o chronic GERD and constipation and diarrhea Pt denies any blood in stool Pt took zantac for many years and he is on omeprazole daily currently for GERD. Pt feels chronic fatigue .Pt does snore at night Instructions Date Instruction Additional Infor mation No Information Assessments Type Assessment Date assessment Mixed hyperlipidemia assessment Proteinuria assessment Essential (primary) hypertension assessment GERD w/o esophagitis Mental Status Date Cognitive Assessment Orientation - [place] ed to time, place, person, situation.
--- OUTSIDE RECORDS SUMMARY | 2024-12-16 00:38 | XMS_ITS | Patient Health Summary ---
Author Organization [facility] Address [address] [facility] [place] [address] Care Team Providers Care Public Affairs Director Name Role Phone Janelle Gunter MD Primary Care Pr ovider Unavailable Note from [facility],non-owned Affiliates and Associated Physician Practices is amultiple site organization consisting of ambulatory clinics and hospital sitesin [place], [place], [place] and [place]. This disclosure is being madepursuant to the Care Everywhere program and may not contain all information available regarding this patient. Last updated 18.[facility] Medications Be aware that medications may not [...] on file Sexual Orientation Not on file Procedures * XR LUMBAR SPINE 2 OR 3VW(Performed 09/20/2022) Performed for Back pain, unspecified back location, unspecified back pain laterality, unspecified chronicity * XR CERVICAL SPINE 2 OR 3VW(Performed 09/20/2022) Performed for Neck pain Results * XR LUMBAR SPINE 2 OR 3VW (09/20/2022 12:09 PM JOURNEYMAN PLUMBER) Anatomical Region Laterality Modality Spine Radiographic Maxine ging 09/20/2022 12:1 5 PM JOURNEYMAN PLUMBER Impressions 09/20/2022 12:15 PM JOURNEYMAN PLUMBER IMPRESSION: Mild lower lumbar degenerative change. > Interpreting Provider: Jack Bosch MD on 09/20/2022 12:15 PM Narrative 09/20/2022 12:15 PM JOURNEYMAN PLUMBER PROCEDURE: XR LUMBAR SPINE 2 OR 3VW, DATE/TIME OF EXAM: 09/20/2022 12:10 PM, LOCATION [facility] INDICATION: M54.9: Back pain, unspecified back location, unspecified back pain laterality, unspecified chronicity ADDITIONAL CLINICAL INFORMATION: Ordering Provider Reason For Exam: low back pain Technologist Note: Additional: COMPARISON: None. FINDINGS: The lumbar lordosis is normal. Slight retrolisthesis at L4-5. No fracture. Mild degenerative disc disease at L4-5 and L5-S1. Procedure Note Jack Bosch MD - 09/20/2022 PROCEDURE: XR LUMBAR SPINE 2 OR 3VW, DATE/TIME OF EXAM: 2:10 PM, LOCATION [facility] INDICATION: M54.9: Back pain, unspecified back location, unspecified back pain laterality, unspecified chronicity ADDITIONAL CLINICAL INFORMATION: Ordering Provider Reason For Exam: low back pain Technologist Note: Additional: COMPARISON: None. FINDINGS: The lumbar lordosis is normal. Slight retrolisthesis at L4-5. Nofracture. Mild degenerative disc disease at L4-5 and L5-S1. IMPRESSION: Mild lower lumbar degenerative change. > Interpreting Provider: Jack Bosch MD on 09/20/2022 12:15 PM Gladis Watson MD DIAGNOSTIC IMAGING ORDERABLES * XR CERVICAL SPINE 2 OR 3VW (09/20/2022 11:41 AM JOURNEYMAN PLUMBER) Anatomical Region Laterality Modality Spine Radiographic Maxine ging 09/20/2022 12:1 4 PM JOURNEYMAN PLUMBER Impressions 09/20/2022 12:15 PM JOURNEYMAN PLUMBER IMPRESSION: Mild to moderate degenerative changes. > Interpreting Provider: Jack Bosch MD on 09/20/2022 12:15 PM Narrative 09/20/2022 12:15 PM JOURNEYMAN PLUMBER PROCEDURE: XR CERVICAL SPINE 2 OR 3VW, DATE/TIME OF EXAM: 09/20/2022 11:41 AM, LOCATION [facility] INDICATION: M54.2: Neck pain ADDITIONAL CLINICAL INFORMATION: Ordering Provider Reason For Exam: pain Technologist Note: Additional: COMPARISON: None. FINDINGS: Nonspecific straightening of the usual lordosis. Mild to moderate multilevel degenerative changes, greatest at C6-7. No fracture or subluxation. Right mandibular plate and screws. Procedure Note Jack Bosch MD - 09/20/2022 PROCEDURE: XR CERVICAL SPINE 2 OR 3VW, DATE/TIME OF EXAM: 09/20/2022 11:41 AM, LOCATION [facility] INDICATION: M54.2: Neck pain ADDITIONAL CLINICAL INFORMATION: Ordering Provider Reason For Exam: pain Technologist Note: Additional: COMPARISON: None. FINDINGS: Nonspecific straightening of the usual lordosis. Mild to moderate multilevel degenerative changes, greatest at C6-7. No fracture or subluxation. Right mandibular plate and screws. IMPRESSION: Mild to moderate degenerative changes. > Interpreting Provider: Jack Bosch MD on 09/20/2022 12:15 PM Gladis Watson MD DIAGNOSTIC IMAGING ORDERABLES Care Teams Public Affairs Director Relationship Specialty Start Date End Date [facility] PCP - General 09/13/22
--- OUTSIDE RECORDS SUMMARY | 2024-12-16 00:38 | XMS_ITS | Referral Summary ---
Author Organization [facility] Address [address] [facility] [place] [address] Care Team Providers Care Emblem Fuser Tender Name Role Phone Janelle Gunter MD Primary Care Pr ovider Unavailable Source Comments [facility],non-owned Affiliates and Associated Physician Practices is amultiple site organization consisting of ambulatory clinics and hospital sitesin [place], [place], [place] and [place]. This disclosure is being madepursuant to the Care Everywhere program and may not contain all information available regarding this patient. Last updated 18.[facility] Medications Be aware that medications may not [...] Orientation Not on file Plan of Treatment Not on file Care Teams Emblem Fuser Tender Relationship Specialty Start Date End Date Janelle Gunter MD PCP - General 09/13/22
[2024-12-16 12:24] VITALS: BP 141/90; PULSE 57; RESP 20; TEMP 36.3; O2SAT 99
[2024-12-16] MEDS: LACTATED RINGERS 1,000 ML 150 ML IV CONT (12:39)
--- NOTE | 2024-12-16 13:00 | WPDANESEPPF ---
Anes - Initial Pre Proc Eval Procedure: Operation Date: 12/16/24 13:00 Proposed Procedures p Esophagogastroduodenoscopy & Colonoscopy - Tom Fuentes MD Date/Time: 12/16/24 13:00 Surgeon: Tom Fuentes MD Pre Op Diagnosis: Change in bowel habit, Gerd Patient Data Age: 44 Gender: M Height: 1.88 m Weight: 100 kg Last Vital Signs Temp 36.3 C L 12/16/24 12:24 Pulse 57 L 12/16/24 12:24 Resp 20 12/16/24 12:24 BP 141/90 H 12/16/24 12:24 Pulse Ox 99 12/16/24 12:24 O2 Del Method Room Air 12/16/24 12:24 Allergies Allergy/AdvReac Type Severity Reaction Status Date / Time NSAIDS (Non-Steroidal Allergy Severe hives Verified 12/16/24 12:17 Anti-Inflamma Home Medications ?Medication ?Instructions ?Recorded ?Confirmed ?Type metoprolol succinate 25 mg 25 mg PO DAILY 11/29/24 12/16/24 History tablet,extended release 24 hr buprenorphine 8 mg-naloxone 2 mg 1 tablet sublingual DAILY 12/16/24 12/16/24 History sublingual tablet Patient hx anesthesia problems: none Family hx anesthesia problems: none Results Review: All pre-operative results and documents have been reviewed as part of the pre-operative evaluation. [facility] Past Medical History Medical History HTN (hypertension) Smoker Social History Social History Smoking packs per day: 1 Smoking cigarettes per day: 20.0 Years smoked: 25 Smoking pack-years: 25.00 Smoking status: Current every day smoker Tobacco type: cigarettes Alcohol intake: current Alcohol use details: pt states maybe twice a month Substance use: current Substance use type: marijuana Other substance usage details: smoking marijuana daily Living arrangements: alone Spiritual care concerns: No Anes - Eval Final PreProcedure Day of Procedure 12/16/24 13:00 Patient weight: overweight Heart: regular rate and rhythm Lungs: clear to auscultation Airway: Mallampati scale class II Neurological: alert and oriented Last oral intake: >/= 8 hours ASA classification: II Emergent: no Anesthetic plan: proceed Anesthesia type and monitoring: general GIVS and standard monitoring Results Review: All pre-operative results and documents have been reviewed as part of the pre-operative evaluation. Informed Consent: The patient's anesthetic plan and its attendant risks and benefits were discussed with the patient/family/POA. Questions were solicited and answers provided to the satisfaction of the patient/family/POA.
--- NOTE | 2024-12-16 13:56 | PM.IMHP ---
H&P: HPI History of Present Illness Date/Time: 12/16/24 13:56 Chief Complaint: GERD-irregular bowel habits Narrative: the patient has been suffering from reflux for several years, partially controlled with omeprazole 20 mg q.d.. In addition, patient has diffuse, nonspecific intermittent abdominal pain and variable stool consistency, flat 20 minutes in diarrhea and constipation. He is referred for EGD and colonoscopy. There is no family history of gastrointestinal cancers. Review of Systems Review of Systems: All systems reviewed & are unremarkable except as noted in HPI and below PMFSH Past Medical History Medical History HTN (hypertension) Smoker Social History Social History Smoking packs per day: 1 Smoking cigarettes per day: 20.0 Years smoked: 25 Smoking pack-years: 25.00 Smoking status: Current every day smoker Tobacco type: cigarettes Alcohol intake: current Alcohol use details: pt states maybe twice a month Substance use: current Substance use type: marijuana Other substance usage details: smoking marijuana daily Living arrangements: alone Spiritual care concerns: No Meds Home Medications and Allergies Home Medications ?Medication ?Instructions ?Recorded ?Confirmed ?Type metoprolol succinate 25 mg 25 mg PO DAILY 11/29/24 12/16/24 History tablet,extended release 24 hr buprenorphine 8 mg-naloxone 2 mg 1 tablet sublingual DAILY 12/16/24 12/16/24 History sublingual tablet Allergies Allergy/AdvReac Type Severity Reaction Status Date / Time NSAIDS (Non-Steroidal Allergy Severe hives Verified 12/16/24 12:17 Anti-Inflamma Vital Signs Vital Signs - 24 hr 12/16/24 12:24 Temperature 97.3 F L Pulse Rate 57 L Respiratory Rate 20 Blood Pressure 141/90 H Pulse Oximetry 99 Oxygen Delivery Room Air Exam Const: General: cooperative and healthy appearing Resp: Effort & Inspection: normal respiratory effort and able to speak in complete sentences Auscultation: clear to auscultation bilaterally Cardio: Rate: regular rate Rhythm: regular rhythm GI: Inspection: normal to inspection GI Palp: No No hepatosplenomegaly present Auscultation: normal bowel sounds Rectal Exam: deferred Skin: General skin exam: normal color Psych: Appearance: grossly normal Mental Status: mental status grossly normal Assessment and Plan Assessment and plan (1) GERD (gastroesophageal reflux disease): Code(s): K21.9 - Gastro-esophageal reflux disease without esophagitis Status: Acute Assessment and Plan: The patient is deemed a good candidate for the procedures. Consent signed. Will proceed. (2) Change in bowel habits: Code(s): R19.4 - Change in bowel habit Status: Acute
--- NOTE | 2024-12-16 14:11 | SUR.OPER ---
EGD [id number]. Colonoscopy start time 1414.
[2024-12-16 14:32] VITALS: BP 108/66; PULSE 78; RESP 19; O2SAT 93
[2024-12-16 14:42] VITALS: BP 114/69; PULSE 67; RESP 18; O2SAT 96
[2024-12-16 14:52] VITALS: BP 140/95; PULSE 68; RESP 18; O2SAT 98
== END 2024-12-16 15:14 | disposition home or self-care (01) ==
PROVIDERS: PCP Emergency Medicine; Visit Provider Internal Medicine Gastroenterology
PROC: 0DJ08ZZ Inspection of Upper Intestinal Tract, Via Natural or Artificial Opening Endoscopic (ICD-10-PCS; CPT 45378; principal; 2024-12-16 13:00)
DX: D12.0 Benign neoplasm of cecum (principal); K21.9 Gastro-esophageal reflux disease without esophagitis; I10 Essential (primary) hypertension; F17.210 Nicotine dependence, cigarettes, uncomplicated; F12.90 Cannabis use, unspecified, uncomplicated
CPT/HCPCS: 43239; 45385; 88305; J2003; J2704; J7120

== ENCOUNTER 2025-01-18 08:51 | Outpatient (CLI) | payer OTHER, SELFPAY ==
--- NOTE | 2025-01-18 08:54 | EST_ITS ---
Patient Info Name: Chato Copeland Age: 44 years : 1980 Gender: Male Ht: 74 in Wt: 225 lbs BSA: 2.33 m2 HR: 66 bpm BP: 155 / 92 mmHg Exam Date: 01/18/2025 9:01 AM Exam Location: Echo Lab Patient Status: Outpatient Admit Date: 01/18/2025 Staff Ordering Physician: Santiago Orosco DO Attending Provider: Santiago Orosco DO Exercise Technologist: leonie hollingsworth Exercise Physician: Santiago Orosco DO Exam Type: CA stress test treadmill Study Info A treadmill exercise stress test was performed. Summary 1. 1. Negative Joce exercise stress test for ischemic ST changes by ECG criteria. 2. 2. Good functional capacity, achieving 12 METs of workload. 3. 3. Baseline hypertension with hypertensive response to exercise. 4. 4. Appropriate HR response to exercise. 5. 5. Appropriate HR recovery at 1 minute post exercise. 6. 6. No imaging with stress testing. 7. 7. Patient informed of the above results. Protocol: Joce Stress ECG Details Stage: REST Duration (min): 0 min : 22 sec Speed (mph): 0.0 Grade (%): 0 HR (bpm): 67 SBP (mmHg): --- DBP (mmHg): --- METS: --- Stage: REST Duration (min): 1 min : 27 sec Speed (mph): 0.0 Grade (%): 0 HR (bpm): 72 SBP (mmHg): 155 DBP (mmHg): 92 METS: --- Stage: REST Duration (min): 9 min : 53 sec Speed (mph): 0.0 Grade (%): 0 HR (bpm): 90 SBP (mmHg): 155 DBP (mmHg): 92 METS: --- Stage: STAGE 1 Duration (min): 1 min : 0 sec Speed (mph): 1.7 Grade (%): 10 HR (bpm): 97 SBP (mmHg): 155 DBP (mmHg): 92 METS: --- Stage: STAGE 1 Duration (min): 2 min : 0 sec Speed (mph): 1.7 Grade (%): 10 HR (bpm): 103 SBP (mmHg): 155 DBP (mmHg): 92 METS: --- Stage: STAGE 1 Duration (min): 3 min : 0 sec Speed (mph): 1.7 Grade (%): 10 HR (bpm): 106 SBP (mmHg): 180 DBP (mmHg): 90 METS: --- Stage: STAGE 2 Duration (min): 1 min : 0 sec Speed (mph): 2.5 Grade (%): 12 HR (bpm): 111 SBP (mmHg): 180 DBP (mmHg): 90 METS: --- Stage: STAGE 2 Duration (min): 2 min : 0 sec Speed (mph): 2.5 Grade (%): 12 HR (bpm): 117 SBP (mmHg): 188 DBP (mmHg): 91 METS: --- Stage: STAGE 2 Duration (min): 3 min : 0 sec Speed (mph): 2.5 Grade (%): 12 HR (bpm): 118 SBP (mmHg): 188 DBP (mmHg): 91 METS: --- Stage: STAGE 3 Duration (min): 1 min : 0 sec Speed (mph): 3.4 Grade (%): 14 HR (bpm): 127 SBP (mmHg): 206 DBP (mmHg): 96 METS: --- Stage: STAGE 3 Duration (min): 2 min : 0 sec Speed (mph): 3.4 Grade (%): 14 HR (bpm): 130 SBP (mmHg): 206 DBP (mmHg): 96 METS: --- Stage: STAGE 3 Duration (min): 3 min : 0 sec Speed (mph): 3.4 Grade (%): 14 HR (bpm): 138 SBP (mmHg): 211 DBP (mmHg): 94 METS: --- Stage: STAGE 4 Duration (min): 1 min : 0 sec Speed (mph): 4.2 Grade (%): 16 HR (bpm): 146 SBP (mmHg): 211 DBP (mmHg): 94 METS: --- Stage: STAGE 4 Duration (min): 2 min : 0 sec Speed (mph): 4.2 Grade (%): 16 HR (bpm): 147 SBP (mmHg): 205 DBP (mmHg): 99 METS: --- Stage: STAGE 4 Duration (min): 3 min : 0 sec Speed (mph): 5.0 Grade (%): 18 HR (bpm): 150 SBP (mmHg): 205 DBP (mmHg): 99 METS: --- Stage: RECOVERY Duration (min): 1 min : 0 sec Speed (mph): 0.0 Grade (%): 0 HR (bpm): 127 SBP (mmHg): 186 DBP (mmHg): 91 METS: --- Stage: RECOVERY Duration (min): 2 min : 0 sec Speed (mph): 0.0 Grade (%): 0 HR (bpm): 107 SBP (mmHg): 186 DBP (mmHg): 91 METS: --- Stage: RECOVERY Duration (min): 3 min : 0 sec Speed (mph): 0.0 Grade (%): 0 HR (bpm): 103 SBP (mmHg): 174 DBP (mmHg): 87 METS: --- Stage: RECOVERY Duration (min): 3 min : 26 sec Speed (mph): 0.0 Grade (%): 0 HR (bpm): 104 SBP (mmHg): 174 DBP (mmHg): 87 METS: --- Rest HR: 90 bpm Peak HR: 152 bpm Rest Sys BP: 155 mmHg Peak Sys BP: 211 mmHg Max Pred HR: 176 bpm % Max Pred HR: 86 % Target HR: 150 bpm Max RPP: 32,072 bpm*mmHg Esteban Score: -5 BP Response: Patient exhibited a hypertensive response with stress Termination Reason: Reached target heart rate or workload Cardiac Symptoms: Shortness of breath Max ST Seg Deviation: 3.40 mm Total Time: 12 min : 0 sec Rest Velasco BP: 92 mmHg Peak Velasco BP: 94 mmHg Angina Score: None Total METS: 12.1 Resting ECG Sinus rhythm, IRBBB. Stress ECG No ST changes. Arrhythmias None. Report Signatures
--- OUTSIDE RECORDS SUMMARY | 2025-01-18 09:15 | XMS_ITS | Clinical Summary ---
Author Organization [facility] Care Team Providers Care Rope Rider Name Role Phone Unknown, Notinfile Primary Care Provider Unavail able Allergies Active Allergy Reactions Criticality Noted Date Comments Nsaids (Non-Steroidal Anti-I nflammatory Drug) Hives Medium 08/28/2022 Medications omeprazole (PriLOSEC) 40 mg capsule Take 40 mg by mouth daily Active lisinopriL (PRINIVIL,ZESTR IL) 10 mg tablet Take 10 mg by mouth daily Active ondansetron (Zofran) 4 mg tabletIndicatio ns:Chronic hepatitis C without hepatic coma (HCC) Take 1 tablet (4 mg total) by mouth every 12 (twelve) hours as needed for nausea or vomiting 30 tablet 1 11/21/2022 Active buprenorphine-n aloxone (SUBOXONE) 2-0.5 mg per SL tablet Place 0.5 tablets under the tongue daily Active Active Problems Problem Noted Date Diagnosed Date Chronic hepatitis C without hepatic coma 023 Assessment & Plan (11/21/2022 9:04 AM SADDLE STITCHING MACHINE OPERATOR): 1. Hepatitis C: chronic, treatment naive. Risk [...] on file Legal Sex Male 2:02 AM SADDLE STITCHING MACHINE OPERATOR Gender Identity Not on file Sexual Orientation Not on file Obstetrics History Last Filed Vital Signs Vital Sign Reading Time Taken Comments Blood Pressure 146/101 11/21/2022 8:21 AM SADDLE STITCHING MACHINE OPERATOR Pulse 82 11/21/2022 8:21 AM SADDLE STITCHING MACHINE OPERATOR Temperature 36.7 C (98.1 F) 11/21/2022 8:21 AM SADDLE STITCHING MACHINE OPERATOR Respiratory Rate - - Oxygen Saturation - - Inhaled Oxygen Concentration - - Weight 103.9 kg (229 lb) 11/21/2022 8:21 AM SADDLE STITCHING MACHINE OPERATOR Height 188 cm (6' 2 ) 11/21/2022 8:21 AM SADDLE STITCHING MACHINE OPERATOR Body Mass Index 29.4 11/21/2022 8:21 AM SADDLE STITCHING MACHINE OPERATOR Plan of Treatment Health Maintenance Due Date Last Done Comments Depression Screening 1980 DTaP/Tdap/Td Vaccine (1 - Tdap) 1991 Varicella Vaccines (1 of 2 - 13+ 2-dose series) 1993 Regular Well Visit/Exam 18-64 1998 Pneumococcal vaccine <65 (1 of 2 - PCV) 1999 Influenza Vaccine (#1) 2024 Hepatitis C Screening Completed 06/04/2023 , 06/04/2023, 03/10/2023, Additional history exists HPV Vaccines Aged Out No longer eligi ble based on patient's age to complete this topic Procedures Procedure Name Priority Date/Time Associated Diagnosis Comments HEPATITIS C RNA, QUANTITATIVE, PCR Routine 06/04/2023 1:58 PM CDT Chronic hepatitis C without hepatic coma (HCC) from Last 3 Months or Most Recently Relevant to Health Maintenance Results * Hepatitis C (HCV) RNA PCR, quantitative (06/04/2023 1:58 PM CDT) HCV RNA result Not Detected LEO LEES) Comment: The quantifiable range of this assay is 15 IU/mL to 100,000,000 IU/mL (1.18 log IU/mL to 8.00 log IU/mL). Testing was performed by the [facility] 6800 HCV Test ([employer] Testing performed at [facility] Current Interpretive Data was last revised on 2021 Testing performed by: [facility], [address] [facility], [place]., [address] Blood 06/04/2023 1:58 PM CDT 06/04/2023 6:35 PM CDT us Ching Buck NP LAB MICROBIOLOGY - GENER AL ORDERABLES Final Result DASHA WILLIAM (JACKIE) [address] [facility] [place] [address] from Last 3 Months or Most Recently Relevant to Health Maintenance Insurance Care Teams Rope Rider Relationship Specialty Start Date End Date Unknown, Notinfile PCP - General 06/04/23
--- OUTSIDE RECORDS SUMMARY | 2025-01-18 09:15 | XMS_ITS | Clinical Summary ---
Author Organization [facility] Address [address] [place] [address] Care Team Providers Care Gear Shaver Set Up Operator Name Role Phone Alexandre Benson MD Primary Care Provider [phone] Allergies Active Allergy Reactions Criticality Noted Date [...] Comments Blood Pressure 130/86 09/11/2022 10:09 AM ROUTE AGENT Pulse 81 09/11/2022 10:09 AM ROUTE AGENT Temperature 37.3 C (99.2 F) 09/11/2022 10:09 AM ROUTE AGENT Respiratory Rate 18 09/11/2022 10:09 AM ROUTE AGENT Oxygen Saturation 94% 09/11/2022 10:09 AM ROUTE AGENT Inhaled Oxygen Concentration - - Weight 101.6 kg (224 lb) 09/11/2022 10:09 AM ROUTE AGENT Height 180.3 cm (5' 11 ) 09/11/2022 10:09 AM ROUTE AGENT Body Mass Index 31.24 09/11/2022 10:09 AM ROUTE AGENT Plan of Treatment Health Maintenance Due Date Last Done Comments Annual Physical 1983 Pneumococcal Vaccine: Pediatrics (0 to 5 Years) and At-Risk Patients (6 to 64 Years) (1 of 2 - PCV) 1986 DTaP, Tdap and Td Vaccines (1 - Tdap) 1999 Hepatitis B Vaccines (1 of 3 - 19+ 3-dose series) 1999 09/11/2022 COVID-19 Vaccine (1 - 2023- season) 2024 Influenza Adult (#1) 2024 Hepatitis C Completed 09/11/2022, 02/2022, 09/06/2022, Additional [...] C RNA PCR QNT 15,200,00 0(H) IU/mL [facility], HEPATITIS C RNA PCR QNT 7.18(H) LogIU/mL [facility]/ [facility], Comment: REFERENCE RANGE: NOT DETECTED IU/mL NOT DETECTED Log IU/mL This test was performed using Real-Time Polymerase Chain Reaction Reportable range is 15 to 100,000,000 IU/mL (1.18-8.00 Log IU/mL). The analytical performance characteristics of this assay have been determined by [employer]. The modifications have not been cleared or approved by the FDA. This assay has been validated pursuant to the CLIA regulations and is used for clinical purposes. For additional information, please refer to http://education.Chief Trunk/faq/FFA20u5 (This link is being provided for informational/ educational purposes only.) 08/30/2022 2:53 PM CDT 08/31/2022 6:51 AM CDT Janelle Gunter MD LABORATORY Final Result [facility], [address] [place] [address] from Last 3 Months or Most Recently Relevant to Health Maintenance Insurance MEDICAID Care Teams Gear Shaver Set Up Operator Relationship Specialty Start Date End Date Alexandre Benson MD [address] [address] PCP - General INTERNAL MEDICINE 04/07/23
--- OUTSIDE RECORDS SUMMARY | 2025-01-18 09:15 | XMS_ITS | Patient Health Record ---
Author Organization [facility] Address [address] [place] [address] Care Team Providers Care Song Plugger Name Role Phone Jefe Garcia Primary Care Provider [phone] Allergies Allergen (clinical drug ingredient) Drug/Non Drug Allergy documented on EMR Reaction Allergy Type Onset Date Status Non-steroidal anti-inflammatory agent (FN) NSAIDs Unknown Drug Allergy Active Results Component Value Reference Range Notes 12 Panel Urine Drug Screen Reviewed date:12/28/2024 05:17:41 PM Interpretation: Performing Lab: Notes/Report: THC POS MAO neg MOP (OPI) POS AMP neg MET neg BAR neg BZO neg MDMA neg MTD neg OXY POS PCP neg BUP POS 12 Panel Urine Drug Screen Reviewed date:01/04/2025 03:39:16 PM Interpretation: Performing Lab: Notes/Report: THC POS MAO neg MOP (OPI) neg AMP neg MET neg BAR neg BZO neg MDMA neg MTD neg OXY neg PCP neg BUP POS Reason For Referral No Information Medications Medication SIG (Take, Route, Fr equency, Duration) Notes Start Date End Date Status Suboxone 8-2 MG 1 film under the ton belgica and allow to dissolve Sublingual twice a day 12/29/2024 Active Omeprazole 10 MG 1 capsule 30 minutes before morning meal Orally Once a day for 30 day(s) Active Social History Tobacco Use: Social History [...] Problem Status W/U Status Risk Notes Problem Overweight (621199155) Overweight (BMI 25.0-29.9) (E66.3) Active confirmed Problem Obesity (308674367) Obesity (BMI 30-39.9) (E66.9) Active confirmed Problem Tobacco use (021595309) Tobacco use disorder (F17.200) Active confirmed Problem Mental disorder caused by drug (580638092) Opioid use disorder (F11.99) Active confirmed Vital Signs Heart Rate 76 /min 12/29/2024 Temperature 97.8 degrees Fahrenheit 12/29/2024 Respiratory Rate 18 /min 12/29/2024 Oximetry 96 % 12/29/2024 Blood pressure diastolic 60 mm Hg 12/29/2024 Height 72 in 12/29/2024 Blood pressure systolic 112 mm Hg 12/29/2024 Weight 221.0 lbs 12/29/2024 BMI 29.97 kg/m2 12/29/2024 Encounters Encounter Location Date Provider Diagnosis [facility] [place] [address] 12/15/2024 Jenia Heavens Opioid use disorder F11.99 ; Obesity (BMI 30-39.9) E66.9 and Tobacco use disorder F17.[address] [address] [place] [address] 12/29/2024 Jenia Heavens Opioid use disorder F11.99 ; Overweight (BMI 25.0-29.9) E66.3 and Tobacco use disorder F17.200 Assessments Encounter Date Diagnosis (ICD Code) Assessment Notes Treatment Notes Treatment Clinical Notes Section Notes 12/29/2024 Overweight (BMI 25.0-29.9) (ICD-10 - E66.3) 12/29/2024 Opioid use disorder (ICD-10 - F11.99) 12/15/2024 Obesity (BMI 30-39.9) (ICD-10 - E66.9) 12/15/2024 Opioid use disorder (ICD-10 - F11.99) 12/15/2024 Tobacco use disorder (ICD-10 - F17.200) 12/29/2024 Tobacco use disorder (ICD-10 - F17.200) 12/15/2024 Other Discussed medication side effects, adverse effects, risks, benefits, as well as interactions. Encouraged non-use of opioids. Has naloxone. Recommended participation in recovery groups and/or counseling services. May contact office with questions or concerns. 12/29/2024 Other Discussed medication side effects, adverse effects, risks, benefits, as well as interactions. Encouraged non-use of opioids. Has naloxone. Recommended participation in recovery groups/counseling services. Agrees to contact office with questions or concerns. Patient may self-administer their own medications or may self-administer their own oral medications per [place] Protocol. Plan Of Treatment No Information Insurance Providers Payer Name Payer Address Payer Phone Subscriber Number Group Number Insured Name Patient Relationship to Insured Coverage Start Date Coverage End Date [facility] Attn Claims Department [address] [place] [address] [id number] Chato Copeland Self - patient is the insured 5 Medical (General) History Medical History History ICD Code GERD HTN Opioid use disorder Surgical History Surgery Date(Month/Year) facial surgery (right jaw) Hospitalization History Reason Date(Month/Year)
--- OUTSIDE RECORDS SUMMARY | 2025-01-18 09:15 | XMS_ITS | Encounter Summary ---
Author Organization [facility] Address [address] [place] [address] Care Team Providers Care Career Development Associate Name Role Phone Janelle Gunter MD Primary Care Pr ovider Alexandre Nelson MD Primary Care Provider [phone] Encounter Details Date Type Department Care Team (Late st Contact Info) Description 09/23/2022 WebVisible Message Enc [facility] Medical [facility] Multispecialty Care - [address] [place] [address] [place] [employer], [facility] Provider UA results Social History Tobacco Use [...] Coronavirus/COVID-19? No / Unsure 09/11/2022 10:05 AM BRICK UNLOADER TENDER documented as of this encounter Plan of Treatment Not on file documented as of this encounter Visit Diagnoses Not on filedocumented in this encounter Care Teams Career Development Associate Relationship Specialty Start Date End Date Janelle Gunter MD PCP - General FAMILY PRACTICE 08/28/22 04/06/23 Alexandre Benson MD [address] [address] PCP - General INTERNAL MEDICINE 04/07/23 documented as of this encounter
--- OUTSIDE RECORDS SUMMARY | 2025-01-18 09:15 | XMS_ITS ---
Author Organization [facility] Address [address] [place] [address] Care Team Providers Care Generating Plant Superintendent Name Role Phone Jefe Garcia Primary Care Provider [phone] Allergies Allergen (clinical drug ingredient) Drug/Non Drug [...] Notes Problem Mental disorder caused by drug (417766651) Opioid use disorder (F11.99) Active confirmed Problem Obesity (477038725) Obesity (BMI 30-39.9) (E66.9) Active confirmed Problem Tobacco use (872514914) Tobacco use disorder (F17.200) Active confirmed Vital Signs Weight 224.2 lbs 12/15/2024 Height 72 in 12/15/2024 BMI 30.4 kg/m2 12/15/2024 Blood pressure systolic 138 mm Hg 12/15/19 25 Blood pressure diastolic 88 mm Hg 025 Heart Rate 66 /min 12/15/2024 Oximetry 96 % 12/15/2024 Temperature 97.7 degrees Fahrenheit 12/15/19 25 Respiratory Rate 18 /min 12/15/2024 Encounters Encounter Location Date Provider Diagnosis [address] [place] [address] 12/15/2024 Arceliayonathan Garciatiffany Opioid use disorder F11.99 ; Obesity (BMI [...] May contact office with questions or concerns. Next Appt Details Follow Up: 2 Weeks, Reason: MAR f/u Progress Notes * Nabil BALTAZAROB:1980 (44 yo M)Acc No.[id number]:12/15/2024 Patient: Darlene VARGASRockon Provider: Nancy Garcia, MSN, PROCESS CONTROL MANAGER, OUTSIDE DELIVERER-C :1980 A ge:44 Y S ex:Male Date:12/15/2024 Phone: Address:[address] [place] [id number] Check In:09:50 AM VICE PRESIDENT OF NURSING Subjective: * Chief Complaints: * M at [...] I nterpretation M ild Depression S creening: [place] Suicide Severity Rating Scale (LF) 1 . [...] Heather ECHEVERRIA Initial Assessment: Chato presents for [facility] services. Drug of choice: fentanyl, reports using [...] for hepatitis C in the past with Mavy[facility]. Substance use history S ubstance Use History, [...] primary care visit: Patrick love last year Conner isclosure authorization obtained? Y es. director staffing will obtain disclosure authorization. 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 * Examination: A [facility] Physical Assessment: Intoxication and Withdrawal signs I ntoxication signs N o signs of intoxication are present during examination. W ithdrawal Signs N o withdrawal signs are present during examination. . G eneral Examination: GENERAL APPEARANCE: p [...] P CP neg * B UP POS * Demarcus Luevano 12/15/2024 1 0:24:38 AM VICE PRESIDENT OF NURSING > Specimen collected per [facility] specificationsThis lab was reviewed by Demarcus Luevano on 12/28/2024 at 17:17 PM VICE PRESIDENT OF NURSING 2.?Others? Notes: Discussed medication side effects, adverse effects, risks, benefits, as well as interactions. Encouraged non-use of opioids. Has naloxone. Recommended participation in recovery groups and/or counseling services. May contact office with questions or concerns.?? * Procedure Codes: 9 9000 SPECIMEN [id number] BODY MASS INDEX [id number] SELF-MGMT EDUC & TRAIN, 1 [id number] MEDICAL NUTRITION, INDIV, [id number] BEHAV CHNG SMOKING 3-10 MIN * Preventive Medicine: Counseling: C are goal follow-up plan: BMI management provided Y es Above Normal BMI Follow-up L ifestyle education regarding diet S MOKING: Patient counselled on the dangers of tobacco use and urged to quit. . * Follow Up: 2 Weeks (Reason: JAN f/u) * * PRESIDENT OF NURSING Sign off status: Completed true * Provider: Nancy Garcia, MSN, PROCESS CONTROL MANAGER, OUTSIDE DELIVERER-C Date: 0 12/15/2024 Generated for Betty pretty/Sanjiv/eTransmitting on: 0 01/18/2025 09:15 AM CDT History and Physical Notes * HPI (History [...] Total Score: 8 Interpretation: Mild Depression Screening [place] Suicide Sev erity Rating Scale (LF) 1. [...] Primary Care Has a primary care provider?: Mio hale. See notes for provider. Dr. David Mejia Last primary care visit:: Within last year Disclosure authorization obtained?: Yes. director staffing will obtain disclosure authorization. Assessment and history speci fic to females Female/Female at ?: No Hepatitis A and B vaccination status Vac cination status Hep A: Denies vaccination to Hep A. Vaccination encouraged and resources offered. 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 Support System: Has a support system:: Yes [...]
--- OUTSIDE RECORDS SUMMARY | 2025-01-18 09:15 | XMS_ITS | Clinical Summary ---
Author Organization [facility] Address [address] [place] [address] Care Team Providers Care Fitness Sales Associate Name Role Phone Janelle Gunter MD Primary Care Pr ovider Unavailable Source Comments [facility],non-owned Affiliates and Associated Physician Practices is amultiple site organization consisting of ambulatory clinics and hospital sitesin [place], [place], [place] and [place]. This disclosure is being madepursuant to the Care Everywhere program and may not contain all information available regarding this patient. Last updated 18.[facility] Medications Be aware that medications may not [...] Health Maintenance Due Date Last Done Comments HIV SCREENING 1995 DTAP/TDAP/TD VACCINES (1 - Tdap) 1999 HEPATITIS B VACCINE (1 of 3 - 19+ 3-dose series) 1999 COVID-19 VACCINE (1 - 2023- season) 2024 INFLUENZA VACCINE (#1) 2024 DEPRESSION SCREENING 11/03/2024 LIPID TESTING 08/28/2027 08/28/2022 ZOSTER VACCINE (1 of 2) 2030 HEPATITIS C SCREENING Completed 09/06/2022 , 09/06/2022, 09/06/2022, Additional history exists HIB VACCINE Aged Out No longer eligi ble based on patient's age to complete this topic HPV VACCINE Aged Out No longer eligi ble based on patient's age to complete this topic MENINGOCOCCAL (Group B) VACCINE SHARED DECISION-MAKING Aged Out No longer eligible based on patient's age to complete this topic MENINGOCOCCAL GROUPS A/C/Y/W VACCINE Aged Out No longer eligible based on patient's age to complete this topic PNEUMOCOCCAL VACCINE Aged Out No long er eligible based on patient's age to complete this topic Care Teams Fitness Sales Associate Relationship Specialty Start Date End Date Janelle Gunter MD PCP - General 09/13/22
--- OUTSIDE RECORDS SUMMARY | 2025-01-18 09:15 | XMS_ITS | Referral Summary ---
Author Organization [facility] Care Team Providers Care Steam Tender Name Role Phone Unknown, Notinfile Primary Care [...] 023 Assessment & Plan (11/21/2022 9:04 AM DEHYDRATOR): 1. Hepatitis C: chronic, treatment naive. Risk [...] on file Legal Sex Male 2:02 AM DEHYDRATOR Gender Identity Not on file Sexual Orientation Not on file Last Filed Vital Signs Vital Sign Reading Time Taken Comments Blood Pressure 146/101 11/21/2022 8:21 AM DEHYDRATOR Pulse 82 11/21/2022 8:21 AM DEHYDRATOR Temperature 36.7 C (98.1 F) 11/21/2022 8:21 AM DEHYDRATOR Respiratory Rate - - Oxygen Saturation - - Inhaled Oxygen Concentration - - Weight 103.9 kg (229 lb) 11/21/2022 8:21 AM DEHYDRATOR Height 188 cm (6' 2 ) 11/21/2022 8:21 AM DEHYDRATOR Body Mass Index 29.4 11/21/2022 8:21 AM DEHYDRATOR Plan of Treatment Not on file Procedures Procedure Name Priority Date/Time Associated Diagnosis Comments HEPATITIS C RNA, QUANTITATIVE, PCR Routine 06/04/2023 1:58 PM CDT Chronic hepatitis C without hepatic coma (HCC) from Last 3 Months or Most Recently Relevant to Health Maintenance Results * Hepatitis C (HCV) RNA PCR, quantitative (06/04/2023 1:58 PM CDT) HCV RNA result Not Detected LEO WILLIAM (JACKIE) Comment: The quantifiable range of this assay is 15 IU/mL to 100,000,000 IU/mL (1.18 log IU/mL to 8.00 log IU/mL). Testing was performed by the [facility] 6800 HCV Test ([employer] 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
--- NOTE | 2025-01-18 09:51 | ECHO_ITS ---
Patient Info Name: Chato Copelnad Age: 44 years : 1980 Gender: Male Ht: 74 in Wt: 220 lbs BSA: 2.30 m2 HR: 69 bpm BP: 159 / 106 mmHg Technical Quality: Good Exam Date: 01/18/2025 9:56 AM Exam Location: Echo Lab Patient Status: Outpatient Admit Date: 01/18/2025 Staff Ordering Physician: Santiago Orosco DO Monument Setter: Nae Fernandez RDCS Attending Provider: Santiago Orosco DO Referring Physician: Kwesi GUNDERSON; Exam Type: CA echo doppler color flow Study Info Indications - Dyspnea Complete two-dimensional, color flow and Doppler transthoracic echocardiogram is performed. Summary 1. Complete two-dimensional, color flow and Doppler transthoracic echocardiogram is performed. 2. Left ventricular chamber dimension is normal. 3. Left ventricular systolic function is normal, estimated at 60-65%. 4. The left ventricular diastolic function is grade I diastolic dysfunction. 5. E/e' 3 is not elevated. 6. There is trace tricuspid valve regurgitation. 7. No pulmonary hypertension, estimated pulmonary arterial systolic pressure is 20 mmHg. Left Ventricle E/e' 3 is not elevated. Left ventricular chamber dimension is normal. Left ventricular systolic function is normal, estimated at 60-65%. The left ventricular diastolic function is grade I diastolic dysfunction. Right Ventricle Right ventricular systolic function is normal and with normal TAPSE 1.8 cm. Right ventricular chamber dimension is normal. Left Atria Left atrial chamber dimension is normal. Right Atria Right atrial chamber dimension is normal. Aortic Valve The aortic valve is trileaflet. There is no aortic valve stenosis. There is no aortic valve regurgitation. Pulmonic Valve There is no pulmonic regurgitation. Mitral Valve There is no mitral valve stenosis. There is no mitral valve regurgitation. Tricuspid Valve There is trace tricuspid valve regurgitation. No pulmonary hypertension, estimated pulmonary arterial systolic pressure is 20 mmHg. Pericardium/Pleural There is no pericardial effusion. Inferior Vena Cava Normal inferior vena cava with >50% collapse upon inspiration consistent with normal right atrial pressure, 5 mmHg. Aorta The aortic root size at the sinus of Valsalva is normal. Left Ventricular Outflow Tract Name Value Normal LVOT 2D LVOT Diameter 2.0 cm LVOT Doppler LVOT Peak Gradient 7 mmHg LVOT Mean Gradient 4 mmHg LVOT VTI 28 cm LVOT VTI/AV VTI Ratio 0.8 LVOT Stroke Volume 89 ml LVOT CO 17.7 l/min LVOT CI 7.7 l/min/m2 Pulmonic Valve Name Value Normal PV Doppler PV Peak Gradient 6 mmHg Mitral Valve Name Value Normal MV Doppler MV Decel [place] 174 cm/s2 MV PHT 95 ms MV Area (PHT) 2.3 cm2 4.0-5.0 MV Diastolic Function MV E Peak Velocity 57 cm/s MV A Peak Velocity 63 cm/s MV E/A 0.9 MV Decel Time 329 ms MV Annular TDI MV E/e' (Septal) 7.5 <=8.0 MV E/e' (Lateral) 2.4 <=8.0 MV E/e' (Average) 5.0 Tricuspid Valve Name Value Normal TV Regurgitation Doppler TR Peak Velocity 195 cm/s TR Peak Gradient 15 mmHg Estimated PAP/RSVP RA Pressure 5 mmHg <=5 PA Systolic Pressure 20 mmHg <36 RV Systolic Pressure 20 mmHg <36 Aorta Name Value Normal Ascending Aorta Ao Root Diameter (MM) 3.0 cm Ao Root Diam Index (MM) 1.3 cm/m2 Aortic Valve Name Value Normal AV Doppler AV Peak Velocity 152 cm/s AV Peak Gradient 9 mmHg AV Mean Gradient 5 mmHg AV VTI 33 cm AV Area (Cont Eq VTI) 2.7 cm2 >=3.0 AV Area (Cont Eq Joaquín) 2.7 cm2 AV Regurgitation 2D LVOT Area 3.2 cm2 Ventricles Name Value Normal LV Dimensions 2D/MM IVS Diastolic Thickness (2D) 1.1 cm 0.6-1.0 LVID Diastole (2D) 4.9 cm 4.2-5.8 LVIW Diastolic Thickness (2D) 0.9 cm 0.6-1.0 LVID Systole (2D) 2.8 cm 2.5-4.0 LVOT Diameter 2.0 cm LV Mass (2D Cubed) 180.82 g 88.00-224.00 LV Mass Index (2D Cubed) 79 g/m2 49-115 Relative Wall Thickness (2D) 0.37 LV Fractional Shortening/Ejection Fraction 2D/MM LV Fractional Shortening (2D) 42 % 25-43 LV EF (2D Teicholz) 73 % 52-72 LV Diastolic Volume (4C MOD) 107 ml LV EF (4C MOD) 60 % LV Diastolic Volume (2C MOD) 122 ml LV EF (2C MOD) 71 % LV Diastolic Volume (BP MOD) 115 ml 62-150 LV Diastolic Volume Index (BP MOD) 50 ml/m2 34-74 LV Systolic Volume (BP MOD) 39 ml 21-61 LV Systolic Volume Index (BP MOD) 17 ml/m2 11-31 LV EF (BP MOD) 66 % 52-72 LV Diastolic Length (4C) 8.8 cm LV Systolic Length (4C) 6.9 cm LV Stroke Volume (4C MOD) 64 ml RV Dimensions 2D/MM RVID Diastole (2D) 3.4 cm 2.5-3.5 Atria Name Value Normal LA Dimensions LA Dimension (MM) 4.2 cm 3.0-4.1 LA Volume (4C A-L) 56 ml LA Volume (BP A-L) 54 ml RA Dimensions RA Area (4C) 16.3 cm2 <=18.0 Report Signatures
== END 2025-01-18 08:52 | disposition home or self-care (01) ==
LOC: ANHCARD 08:51
PROVIDERS: PCP Emergency Medicine; Visit Provider Internal Medicine Cardiovascular Disease
DX: R06.09 Other forms of dyspnea (principal); I11.9 Hypertensive heart disease without heart failure
CPT/HCPCS: 93017; 93306